=== PATIENT | male | born 1940 | race Caucasian/White ===

== ENCOUNTER 2018-09-19 20:53 | Emergency (ER) | payer MEDICARE ==
[~2018-09-19 20:53] MED LIST: ASPI-1197 PO; CARB1TAB20 PO; CARV12.511 PO; DONE10TA43 PO; ENTA200T5 PO; FINA5TAB41 PO; FISH1CAP20 PO; PRAM1.5T7 PO; PRAV80TA21 PO; TROS20TA4 PO
[2018-09-19] MEDS ORDERED: LIDOCAINE HCL 1% 20 ML VIAL ONE (21:52)
[2018-09-19] MEDS ORDERED: TETANUS/DIPHTHERIA TOXOID [ADULT] 0.5 ML VIAL IM ONE (22:18)
== END 2018-09-19 22:53 | disposition home or self-care (01) ==
LOC: EDH 20:53
DX: S61.216A Laceration without foreign body of right little finger without damage to nail, initial encounter (principal); I10 Essential (primary) hypertension; G20 Parkinson's disease; Z95.1 Presence of aortocoronary bypass graft; Z98.890 Other specified postprocedural states; Z88.1 Allergy status to other antibiotic agents; X58.XXXA Exposure to other specified factors, initial encounter; Y93.89 Activity, other specified; Y92.89 Other specified places as the place of occurrence of the external cause; Y99.8 Other external cause status
CPT/HCPCS: 12042; 90471; 90714

== ENCOUNTER → 2020-12-26 | Outpatient (CLI) | payer MEDICARE | END | disposition home or self-care (01) | LOC: SHCH 14:50 | PROVIDERS: ATTEND Internal Medicine Cardiovascular Disease | DX: I87.2 Venous insufficiency (chronic) (peripheral) (principal) | CPT/HCPCS: 93970 ==